=== PATIENT | male | born 1995 | race African-American/Black ===

== ENCOUNTER 2019-10-20 01:20 | Emergency (ER) | payer SELFPAY ==
[~2019-10-20] VITALS: Ht 180.3 cm; Wt 85.8 kg
[2019-10-20 01:41] VITALS: BP 118/90
== END 2019-10-20 02:23 | disposition home or self-care (01) ==
LOC: ER 01:53
DX: T59.3X3A Toxic effect of lacrimogenic gas, assault, initial encounter (principal); X58.XXXA Exposure to other specified factors, initial encounter; F12.10 Cannabis abuse, uncomplicated; Z98.890 Other specified postprocedural states
CPT/HCPCS: 99281

== ENCOUNTER 2024-10-03 23:11 | Emergency (ER) | payer MEDICAID ==
[~2024-10-03] VITALS: Ht 177.8 cm; Wt 81.0 kg
[2024-10-03 23:34] VITALS: O2SAT 99
[2024-10-04 02:28] VITALS: BP 132/83; PULSE 68; RESP 15; TEMP 37; O2SAT 100
== END 2024-10-04 02:28 | disposition home or self-care (01) ==
LOC: ER 23:11
DX: J06.9 Acute upper respiratory infection, unspecified (principal); F12.90 Cannabis use, unspecified, uncomplicated; Z91.013 Allergy to seafood
CPT/HCPCS: 99281